=== PATIENT | male | born 1995 | race African-American/Black ===

== ENCOUNTER 2019-04-04 11:44 | Emergency (ER) | payer BC ==
[~2019-04-04] VITALS: Ht 190.5 cm; Wt 108.9 kg
[2019-04-04 11:51] VITALS: BP 133/93
--- NOTE | 2019-04-04 12:02 | PHYS DOC ---
Past Medical History Past Medical History: No Pertinent History Past Surgical History: No Surgical History Alcohol Use: Occasionally Drug Use: None, Marijuana Adult General Chief Complaint Chief Complaint: WOUND RECHECK/SUTURE REMOVAL HPI HPI Patient is a 23 year old male who presents with 4 stitches placed on March 18, 2019 to the right index finger over the phalanges. Review of Systems Review of Systems Constitutional: Denies fever or chills [] Eyes: Denies change in visual acuity, redness, or eye pain [] HENT: Denies nasal congestion or sore throat [] Respiratory: Denies cough or shortness of breath [] Cardiovascular: No additional information not addressed in HPI [] GI: Denies abdominal pain, nausea, vomiting, bloody stools or diarrhea [] : Denies dysuria or hematuria [] Musculoskeletal: Denies back pain or joint pain [] Integument: Sutures in right index finger. Denies rash or skin lesions [] Neurologic: Denies headache, focal weakness or sensory changes [] Endocrine: Denies polyuria or polydipsia [] All other systems were reviewed and found to be within normal limits, except as documented in this note. 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 [] HENT: Normocephalic, atraumatic, bilateral external ears normal, oropharynx moist, no oral exudates, nose normal. [] Eyes: PERRLA, EOMI, conjunctiva normal, no discharge. [] Neck: Normal range of motion, no tenderness, supple, no stridor. [] Cardiovascular:Heart rate regular rhythm, no murmur [] Lungs & Thorax: Bilateral breath sounds clear to auscultation [] Abdomen: Bowel sounds normal, soft, no tenderness, no masses, no pulsatile mas ses. [] Skin: Sutures and right index finger. Edges approximated and well-healed. Warm, dry, no erythema, no rash. [] Back: No tenderness, no CVA tenderness. [] Extremities: No tenderness, no cyanosis, no clubbing, ROM intact, no edema. [] Neurologic: Alert and oriented X 3, normal motor function, normal sensory function, no focal deficits noted. [] Psychologic: Affect normal, judgement normal, mood normal. [] Current Patient Data Vital Signs Vital Signs Date Time Temp Pulse Resp B/P (MAP) Pulse Ox O2 Delivery O2 Flow Rate FiO2 04/04/19 11:51 98.2 49 19 133/93 (106) 98 Room Air 98.2 EKG EKG [] Radiology/Procedures Radiology/Procedures [] Course & Med Decision Making Course & Med Decision Making Patient is a 23 year old male who presents with 4 stitches placed on March 18, 2019 to the right index finger over the phalanges. Patient is here for suture removal. Laceration is well-healed and edges are approximated. There is no signs of infection the patient denies any pain. She has full range of motion in the finger can bend at all joints comfortably without come patient. 4 stitches are removed. Dragon Disclaimer Dragon Disclaimer This electronic medical record was generated, in whole or in part, using a voice recognition dictation system. Departure Departure Impression: Primary Impression: Encounter for removal of sutures Disposition: 01 HOME, SELF-CARE Condition: STABLE Referrals: NO PCP (PCP) Patient Instructions: Suture Removal Additional Instructions: Follow-up with primary care provider if needed. SHONNA WEINSTEIN APRN Apr 04, 2019 12:02
== END 2019-04-04 12:13 | disposition home or self-care (01) ==
LOC: ER 11:44
DX: S61.210D Laceration without foreign body of right index finger without damage to nail, subsequent encounter (principal); Z91.018 Allergy to other foods; X58.XXXD Exposure to other specified factors, subsequent encounter
CPT/HCPCS: 99281